=== PATIENT | female | born 1960 | race Caucasian/White ===

== ENCOUNTER 2017-09-23 15:10 | Observation (INO) | payer OTHER ==
[~2017-09-23] VITALS: Ht 165.1 cm; Wt 100.0 kg
[~2017-09-23 15:10] MED LIST: VENTAER INH
[2017-09-23] MEDS ORDERED: XARE20TA PO (15:16)
[2017-09-23 15:18] VITALS: BP 175/102; PULSE 90; RESP 18; TEMP 98.1; O2SAT 94
[2017-09-23] MEDS ORDERED: HYDR-3516 PO (15:40)
--- NOTE | 2017-09-23 15:54 | PD ---
HPI Chief Complaint: Complaint Time Seen by Provider: 15:50 Travel History International Travel<30 days: No Contact w/Intl Traveler<30days: No Traveled to known affect area: No History of Present Illness HPI This 57-year-old female is complaining of left flank pain and hematuria. She has been seeing Dr. Varma and is being evaluated for hematuria. He is on Xarelto because of a blood clot. She had a cystoscopy on September 09 which was apparently normal. She says that yesterday Dr. Varma went into her kidney through the urethra and did a biopsy. She was told to resume her Xarelto today. Since taking Xarelto PFSH Past Medical History Hx Anticoagulant Therapy: Yes Cancer: No Cardiovascular Problems: No Diabetes: No Diminished Hearing: No Deep Vein Thrombosis: Yes (RT KNEE) Endocrine: No Genitourinary: Yes Hepatitis: No Hiatal Hernia: No Immune Disorder: No Musculoskeletal: No Neurologic: No Psychiatric: No Reproductive: Yes (PELVIC PAIN) Respiratory: Yes (ASTHMA) Immunizations Current: Yes Thyroid Disease: No Tetanus Vaccination: Unknown Influenza Vaccination: No ?: Not LMP: 2013 Past Surgical History Body Medical Devices: NONE Genitourinary Surgery: Yes Hysterectomy: Yes Social History Alcohol Use: No Tobacco Use: No Substance Use: No Allergies-Medications (Allergen,Severity, Reaction): Coded Allergies: penicillin G (Unverified Allergy, Severe, Rash/HIVES, 09/23/17) A CHILD - HIVES - MILD REACTION Reported Meds & Prescriptions Reported Meds & Active Scripts Active Reported Hydrocodone-Acetaminophen 5-325 mg Tab 2 Tab PO Q4H PRN Xarelto (Rivaroxaban) 20 Mg Tab 20 Mg PO DAILY Review of Systems General / Constitutional: No: Fever, Chills Eyes: No: Diploplia, Blurred Vision HENT: No: Headaches, Vertigo Cardiovascular: No: Chest Pain or Discomfort, Palpitations Respiratory: No: Cough Gastrointestinal: No: Nausea, Vomiting Genitourinary: Positive: Hematuria, Flank Pain Skin: No Rash, No Itching Neurologic: No: Weakness, Dizziness Physical Exam Narrative GENERAL: Well-developed female SKIN: Focused skin assessment warm/dry. HEAD: Atraumatic. Normocephalic. EYES: Pupils equal and round. No scleral icterus. No injection or drainage. ENT: No nasal bleeding or discharge. Mucous membranes pink and moist. NECK: Trachea midline. No JVD. CARDIOVASCULAR: Regular rate and rhythm. No murmur appreciated. RESPIRATORY: No accessory muscle use. Clear to auscultation. Breath sounds equal bilaterally. GASTROINTESTINAL: Abdomen soft, non-tender, nondistended. Hepatic and splenic margins not palpable. There is right CVA tenderness MUSCULOSKELETAL: No obvious deformities. No clubbing. No cyanosis. No edema. NEUROLOGICAL: Awake and alert. No obvious cranial nerve deficits. Motor grossly within normal limits. Normal speech. PSYCHIATRIC: Appropriate mood and affect; insight and judgment normal. Data Data Last Documented VS Vital Signs Date Time Temp Pulse Resp B/P (MAP) Pulse Ox O2 Delivery O2 Flow Rate FiO2 09/23/17 15:18 98.1 90 18 175/102 (126) 94 Orders Orders Complete Blood Count With Diff (09/23/17 15:50) Basic Metabolic Panel (Bmp) (09/23/17 15:50) Prothrombin Time / Inr (Pt) (09/23/17 15:50) Act Partial Throm Time (Ptt) (09/23/17 15:50) Urinalysis - C+S If Indicated (09/23/17 15:50) Sodium Chlor 0.9% 1000 Ml Inj (Ns 1000 M (09/23/17 16:00) Ondansetron Inj (Zofran Inj) (09/23/17 16:00) Hydromorphone Pf Inj (Dilaudid Pf Inj) (09/23/17 16:00) MDM Medical Decision Making Medical Screen Exam Complete: Yes Emergency Medical Condition: Yes Medical Record Reviewed: Yes Differential Diagnosis Differential includes postoperative bleeding, coagulopathy Narrative Course Lab work is pending Kade Mirza MD Sep 23, 2017 15:54
[2017-09-23] MEDS ORDERED: HYDROmorphone HCL PF 2 MG/ML VIAL IV PUSH ONE (16:00)
[2017-09-23] MEDS ORDERED: ONDANSETRON HCL 4 MG/2 ML VIAL IV PUSH ONE (16:00)
[2017-09-23] MEDS: SODIUM CHLOR 0.9% 1000 ML INJ 1,000 ML IV SCH (16:02)
--- NOTE | 2017-09-23 16:07 | PD ---
Physical Exam Narrative Received sign out from previous team to follow up labs and reevaluate. 57yo F with PMH of right DVT on xarelto here with left flank pain today. Said she had "transurethral left kidney biopsy" yesterday by Dr. Gilberto Vogel for work up of hematuria. Labs reviewed, leukocytosis 12.2. BUN/creatinine elevated at 20/1.60 which is double baseline of 10/0.86 on 03/03/07. UA showed large blood. 20-24 WBC. Will cover with antibiotics. CTa/p showed mild swelling and edema of left kidney. Mild left hydronephrosis and hydroureter suggesting obstruction at the ureterovesical junction. Could be small clot or a radiolucent stone. No retroperitoneal hematoma. Pt is requiring multiple IV pain medications and still in pain. I discussed with Dr. Vogel who suggested admission for pain control and possibly a stent. However, he does not come to this hospital so he suggest consult urology international first officer. Said he did bilateral uteroscopy bilaterally yesterday and there was no kidney biopsy. Discussed with Dr. Manley who insist that I called urology first and see if they can admit. I discussed with urologist Dr. Lara who suggest pt be transferred to [facility] because she will need a stent. He states that usually the hospitalist admits the patient and manages the patient's other medical problems and urology will consult. I discussed with Dr. Louie and Dr. Castrejon will be the accepting physician. Data Data Last Documented VS Vital Signs Date Time Temp Pulse Resp B/P (MAP) Pulse Ox O2 Delivery O2 Flow Rate FiO2 09/23/17 21:00 75 18 151/87 (108) 96 Room Air 09/23/17 15:18 98.1 Orders Orders Complete Blood Count With Diff (09/23/17 15:50) Basic Metabolic Panel (Bmp) (09/23/17 15:50) Prothrombin Time / Inr (Pt) (09/23/17 15:50) Act Partial Throm Time (Ptt) (09/23/17 15:50) Urinalysis - C+S If Indicated (09/23/17 15:50) Sodium Chlor 0.9% 1000 Ml Inj (Ns 1000 M (09/23/17 16:00) Ondansetron Inj (Zofran Inj) (09/23/17 16:00) Hydromorphone Pf Inj (Dilaudid Pf Inj) (09/23/17 16:00) Urine Culture (09/23/17 15:30) Morphine Inj (Morphine Inj) (09/23/17 17:30) Ct Abd/Pel W/O Iv Contrast (09/23/17 ) Ciprofloxacin 400 Mg Premix (Cipro 400 M (09/23/17 19:00) Morphine Inj (Morphine Inj) (09/23/17 19:00) Docusate Sodium (Colace) (09/23/17 19:15) Consult Urology (09/23/17 ) (Hub Use Only)Inp Phy Cons/Ref (09/23/17 ) Admit Order (Ed Use Only) (09/23/17 21:01) Place In Observation (09/23/17 ) Vital Signs (Adult) PRECIOUS.Q4H (09/23/17 21:07) Diet Npo Except Meds (09/24/17 Breakfast) Activity Bed Rest (09/23/17 21:07) Hydromorphone Pf Inj (Dilaudid Pf Inj) (09/23/17 21:15) Ondansetron Inj (Zofran Inj) (09/23/17 21:15) Lorazepam (Ativan) (09/23/17 21:15) Oxybutynin (Ditropan) (09/23/17 21:15) Sodium Chlor 0.9% 1000 Ml Inj (Ns 1000 M (09/23/17 21:15) Intake + Output 06,14,22 (09/23/17 21:07) Comprehensive Metabolic Panel (09/24/17 06:00) Labs Laboratory Tests Test 09/23/17 15:30 White Blood Count 12.2 TH/MM3 Red Blood Count 4.53 MIL/MM3 Hemoglobin 13.7 GM/DL Hematocrit 42.0 % Mean Corpuscular Volume 92.8 FL Mean Corpuscular Hemoglobin 30.3 PG Mean Corpuscular Hemoglobin Concent 32.7 % Red Cell Distribution Width 12.6 % Platelet Count 184 TH/MM3 Mean Platelet Volume 10.0 FL Neutrophils (%) (Auto) 84.6 % Lymphocytes (%) (Auto) 7.5 % Monocytes (%) (Auto) 6.0 % Eosinophils (%) (Auto) 0.2 % Basophils (%) (Auto) 1.7 % Neutrophils # (Auto) 10.4 TH/MM3 Lymphocytes # (Auto) 0.9 TH/MM3 Monocytes # (Auto) 0.7 TH/MM3 Eosinophils # (Auto) 0.0 TH/MM3 Basophils # (Auto) 0.2 TH/MM3 CBC Comment DIFF FINAL Differential Comment Prothrombin Time 10.3 SEC Prothromb Time International Ratio 1.0 RATIO Activated Partial Thromboplast Time 26.1 SEC Urine Color RED Urine Turbidity CLOUDY Urine pH 7.0 Urine Specific [place] 1.017 Urine Protein 100 mg/dL Urine Glucose (UA) NEG mg/dL Urine Ketones NEG mg/dL Urine Occult Blood LARGE Urine Nitrite NEG Urine Bilirubin NEG Urine Leukocyte Esterase NEG Urine RBC INNUM /hpf Urine WBC 20-24 /hpf Microscopic Urinalysis Comment CULTURE INDICATED Blood Urea Nitrogen 20 MG/DL Creatinine 1.60 MG/DL Random Glucose 106 MG/DL Calcium Level 8.7 MG/DL Sodium Level 139 MEQ/L Potassium Level 4.0 MEQ/L Chloride Level 106 MEQ/L Carbon Dioxide Level 25.9 MEQ/L Anion Gap 7 MEQ/L Estimat Glomerular Filtration Rate 33 ML/MIN MDM Supervised Visit with CHRISTOS: No Diagnosis Primary Impression: Hydronephrosis Qualified Codes: N13.30 - Unspecified hydronephrosis Additional Impression: SARABJIT (acute kidney injury) Admitting Information Admitting Physician Requests: Katya Castro DO Sep 23, 2017 16:07
[2017-09-23 16:12] LABS: AUTOMATED NEUTROPHIL # 10.4 TH/MM3 (1.8-7.7); BASOPHIL # 0.2 TH/MM3 (0-0.2); BASOPHIL % 1.7 % (0.0-2.0); EOSINOPHIL % 0.2 % (0.0-4.0); HEMOGLOBIN 13.7 GM/DL (11.6-15.3); LYMPH % 7.5 % (9.0-44.0); LYMPHOCYTE # 0.9 TH/MM3 (1.0-4.8); MEAN CELL VOLUME 92.8 FL (80.0-100.0); MEAN CORPUSCULAR HEMOGLOBIN 30.3 PG (27.0-34.0); MEAN CORPUSCULAR HGB CONC 32.7 % (32.0-36.0); MONOCYTE # 0.7 TH/MM3 (0-0.9); NEUT % 84.6 % (16.0-70.0); PLATELET COUNT 184 TH/MM3 (150-450); RED BLOOD COUNT 4.53 MIL/MM3 (4.00-5.30); RED CELL DISTRIBUTION WIDTH 12.6 % (11.6-17.2); WHITE BLOOD COUNT 12.2 TH/MM3 (4.0-11.0)
[2017-09-23 16:22] LABS: BICARBONATE 25.9 MEQ/L (21.0-32.0); CALCIUM 8.7 MG/DL (8.5-10.1)
[2017-09-23 16:25] LABS: PROTHROMBIN TIME - PATIENT 10.3 SEC (9.8-11.6)
[2017-09-23 16:26] LABS: CREATININE 1.6 MG/DL (0.50-1.00)
[2017-09-23 16:28] LABS: BILIRUBIN, URINE NEG (NEG); BLOOD, URINE LARGE (NEG); GLUCOSE,URINE NEG (NEG); KETONE, URINE NEG (NEG); NITRITE,URINE NEG (NEG); URINE LEUKOCYTE ESTERASE NEG (NEG)
[2017-09-23 16:32] VITALS: BP 168/73; PULSE 76; RESP 18; O2SAT 97
[2017-09-23 16:47] LABS: URINE COLOR RED (YELLW/STRAW)
[2017-09-23 16:48] LABS: RBC, URINE INNUM /hpf (0-3)
[2017-09-23] MEDS ORDERED: MORPHINE SULFATE 2 MG/ML INJ IV PUSH ONE ×2 (17:30→19:00)
[2017-09-23 18:27] VITALS: BP 167/80; PULSE 78; RESP 20; O2SAT 95
--- NOTE | 2017-09-23 18:38 | RADRPT ---
EXAM DATE/TIME: 09/23/2017 18:01 [place] COMPARISON: No previous studies available for comparison. INDICATIONS : Left flank pain. Gross hematuria. Post left renal biopsy yesterday. ORAL CONTRAST: No oral contrast ingested. RADIATION DOSE: 22.05 CTDIvol (mGy) MEDICAL HISTORY : None SURGICAL HISTORY : Hysterectomy. ENCOUNTER: Initial ACUITY: 1 day PAIN SCALE: 10/10 LOCATION: Left flank TECHNIQUE: Volumetric scanning of the abdomen and pelvis was performed. Using automated exposure control and ad justment of the mA and/or kV according to patient size, radiation dose was kept as low as reasonably achievable to obtain optimal diagnostic quality images. DICOM format image data is available electro nically for review and comparison. FINDINGS: Left kidney is mildly swollen and edematous relative to the right kidney. There is mild hydronephrosi s and diffuse hydroureter. No measurable hematoma. A small amount of blood or a radiolucent stone cou ld be occluding the distal left ureter. 14 mm hypodensity mid zone of the right kidney. No acute right renal abnormality demonstrated. Noncontrast appearance of the liver, spleen, pancreas and adrenal glands within normal limits. No obs truction or acute inflammatory changes of the gastrointestinal tract. The appendix is normal. There i s no free fluid. No retroperitoneal hemorrhage. CONCLUSION: 1. Mild swelling and edema of the left kidney. There is also mild left hydronephrosis and hydroureter suggesting obstruction at the ureterovesical junction. The differential would be small clot or a rad iolucent stone. No nephric, perinephric or retroperitoneal hematoma demonstrated. 2. 14 mm indeterminate hypodensity of the right kidney, most likely a cyst. Gerhard Jane MD on September 23, 2017 at 18:32 Board Certified Radiologist. This report was verified electronically.
[2017-09-23 19:00] VITALS: BP 169/86; PULSE 79; RESP 18; O2SAT 93
[2017-09-23] MEDS ORDERED: CIPROFLOXACIN 400 MG PREMIX 200 ML IV ONE (19:00)
[2017-09-23] MEDS ORDERED: DOCUSATE SODIUM 100 MG CAP PO ONE (19:15)
[2017-09-23 21:00] VITALS: BP 151/87; PULSE 75; RESP 18; O2SAT 96
[2017-09-23] MEDS ORDERED: OXYBUTYNIN CHLORIDE 5 MG TAB PO ONE (21:15)
[2017-09-23] MEDS ORDERED: SODIUM CHLOR 0.9% 1000 ML INJ 1,000 ML IV SCH (21:15)
[2017-09-23] MEDS ORDERED: LORazepam 0.5 MG TAB PO ONE (21:15)
[2017-09-23] MEDS ORDERED: HYDROmorphone HCL PF 2 MG/ML VIAL IV PUSH PRN (21:15)
[2017-09-23] MEDS ORDERED: ONDANSETRON HCL 4 MG/2 ML VIAL IV PUSH PRN (21:15)
[2017-09-23 23:00] VITALS: BP 137/68; PULSE 73; RESP 16; O2SAT 95
[2017-09-24 00:24] VITALS: BP 125/60; PULSE 73; RESP 16; O2SAT 92
[2017-09-24 01:21] VITALS: BP 123/59
[2017-09-24 01:57] VITALS: BP 111/64; PULSE 68; RESP 19; TEMP 97.8; O2SAT 95
[2017-09-24 05:54] VITALS: BP 101/52; PULSE 60; RESP 18; TEMP 98.2; O2SAT 96
[2017-09-24] MEDS: SODIUM CHLOR 0.9% 1000 ML INJ 1,000 ML IV SCH ×2 (08:00)
[2017-09-24 09:01] VITALS: BP 117/71; PULSE 64; RESP 18; TEMP 96.7; O2SAT 94
--- NOTE | 2017-09-24 09:41 | HHI.HP ---
HPI Service [facility] Hospitalists Primary Care Physician John Nowak MD Admission Diagnosis Left hydroureter, SARABJIT, intractable pain Chief Complaint: Left flank pain Travel History International Travel<30 Days: No Contact w/Intl Traveler <30 Da: No Traveled to Known Affected Are: No History of Present Illness Mrs. Holguin is a pleasant 57 y/o WF with previous right ankle surgery performed at [facility] in 02/2017 and a right LE DVT and was started on Xarelto in 06/2017. She has had a long standing hx of intermittent hematuria and has been following more recently with Dr. Rivera. Pt had undergone a cystoscopy in 08/2017 without any significant findings. Two days ago she underwent bilateral ureteroscopy with Dr. Rivera and started having some increased hematuria following the procedure. Then yesterday she had severe left flank pain which was reportedly like "severe spasms" and continued hematuria with clots present. Pt contacted Dr. Rivera's office and [place] [facility] [place] Labs in the ED noted WBC count 12.2, BUN 20/creatinine 1.60 (outpt labs from 08/13/17 noted Cr 0.72/BUN 26). UA showed large blood/innumerable RBC , 20-[address] Abd/pelvis showed mild swelling and edema of left kidney, mild left hydronephrosis and hydroureter suggesting obstruction at the ureterovesical junction, could be small clot or a radiolucent stone. No retroperitoneal hematoma. Pt had significant pain int he ED requiring multiple IV pain medications. She did finally get relief with a combination of Ditropan, Ativan, and IV Dilaudid. Her pain has resolved currently. Pt was transferred to [facility] for Urology consultation and evaluation. Today pt reports that she is still having significant hematuria. She had taken her Xarelto yesterday but prior to that had been off the Xarelto for 4 days prior to her ureteroscopy. I spoke with Dr. Lara this morning and he and Dr. Rivera would like to see the pt today in the office for cystoscopy and possible stent placement. Pts vital signs are stable. Her repeat labs are pending currently. Her pain is controlled. She denies any nausea/vomiting, fevers/chills, chest pain or SOB. Review of Systems Constitutional: DENIES: Fever, Chills Respiratory: DENIES: Shortness of breath Cardiovascular: DENIES: Chest pain, Palpitations, Lower Extremity Edema Gastrointestinal: COMPLAINS OF: Abdominal pain, DENIES: Diarrhea, Nausea, Vomiting Genitourinary: COMPLAINS OF: Hematuria, DENIES: Urgency Musculoskeletal: DENIES: Back pain, Neck pain Integumentary: DENIES: Rash Neurologic: DENIES: Headache Psychiatric: DENIES: Confusion Past Family Social History Past Medical History RLE DVT (06/2017) on Xarelto Asthma Hx of traumatic arthritis of the right ankle Past Surgical History Double arthrodesis of the right hindfoot on 02/16/2017 Hysterectomy in 2013 Cystoscopy and ureteroscopy Reported Medications Hydrocodone-Acetaminophen 5-325 mg 2 Tab PO Q4H PRN Xarelto 20 Mg PO DAILY Allergies: Coded Allergies: penicillin G (Unverified Allergy, Severe, Rash/HIVES, 09/23/17) A CHILD - HIVES - MILD REACTION Family History Noncontributory Social History Denies any tobacco, regular alcohol use or illicit drug use Pt drinks 4+ caffeinated beverages per day She is Physical Exam Vital Signs Vital Signs Date Time Temp Pulse Resp B/P (MAP) Pulse Ox O2 Delivery O2 Flow Rate FiO2 09/24/17 05:54 98.2 60 18 101/52 (68) 96 09/24/17 01:57 97.8 68 19 111/64 (80) 95 09/24/17 01:21 76 16 123/59 (80) 92 09/24/17 00:24 73 16 125/60 (81) 92 Room Air 09/23/17 23:33 16 09/23/17 23:00 73 16 137/68 (91) 95 Room Air 09/23/17 21:00 75 18 151/87 (108) 96 Room Air 09/23/17 19:51 18 09/23/17 19:00 79 18 169/86 (113) 93 Room Air 09/23/17 19:00 18 09/23/17 18:27 78 20 167/80 (109) 95 Room Air 09/23/17 16:32 76 18 168/73 (104) 97 Room Air 09/23/17 15:18 98.1 90 18 175/102 (126) 94 Physical Exam GENERAL: This is a well-nourished, well-developed patient, in no apparent distress. HEENT: Atraumatic. Normocephalic. No temporal or scalp tenderness. No scleral icterus. Airway patent. NECK: Trachea midline, supple, nontender. CARDIO: Regular. RESP: CTA bilaterally. No wheezes, rales, or rhonchi. ABD: +BS, soft, non-tender, nondistended. EXT: Extremities without clubbing, cyanosis, or edema. NEURO: Awake and alert. Motor and sensory grossly within normal limits. Normal speech. Laboratory Laboratory Tests Test 09/23/17 15:30 White Blood Count 12.2 Red Blood Count 4.53 Hemoglobin 13.7 Hematocrit 42.0 Mean Corpuscular Volume 92.8 Mean Corpuscular Hemoglobin 30.3 Mean Corpuscular Hemoglobin Concent 32.7 Red Cell Distribution Width 12.6 Platelet Count 184 Mean Platelet Volume 10.0 Neutrophils (%) (Auto) 84.6 Lymphocytes (%) (Auto) 7.5 Monocytes (%) (Auto) 6.0 Eosinophils (%) (Auto) 0.2 Basophils (%) (Auto) 1.7 Neutrophils # (Auto) 10.4 Lymphocytes # (Auto) 0.9 Monocytes # (Auto) 0.7 Eosinophils # (Auto) 0.0 Basophils # (Auto) 0.2 CBC Comment DIFF FINAL Differential Comment Prothrombin Time 10.3 Prothromb Time International Ratio 1.0 Activated Partial Thromboplast Time 26.1 Urine Color RED Urine Turbidity CLOUDY Urine pH 7.0 Urine Specific [place] 1.017 Urine Protein 100 Urine Glucose (UA) NEG Urine Ketones NEG Urine Occult Blood LARGE Urine Nitrite NEG Urine Bilirubin NEG Urine Leukocyte Esterase NEG Urine RBC INNUM Urine WBC 20-24 Microscopic Urinalysis Comment CULTURE INDICATED Blood Urea Nitrogen 20 Creatinine 1.60 Random Glucose 106 Calcium Level 8.7 Sodium Level 139 Potassium Level 4.0 Chloride Level 106 Carbon Dioxide Level 25.9 Anion Gap 7 Estimat Glomerular Filtration Rate 33 Date/Time Source Procedure Growth Status 09/23/17 15:30 Urine Clean Catch Urine Culture Pending Received Result Diagram: 09/23/17 1530 09/23/17 1530 Imaging Last Impressions Abdomen/Pelvis CT 09/23/17 0000 Signed Impressions: Service Date/Time: September 18:01 - CONCLUSION: 1. Mild swelling and edema of the left kidney. There is also mild left hydronephrosis and hydroureter suggesting obstruction at the ureterovesical junction. The differential would be small clot or a radiolucent stone. No nephric, perinephric or retroperitoneal hematoma demonstrated. 2. 14 mm indeterminate hypodensity of the right kidney, most likely a cyst. MD Alex Orozco VTE Risk Assessment Caprini VTE Risk Assessment: Mod/High Risk (score >= 2) Caprini Risk Assessment Model Point Value = 1 Point Value = 2 Point Value = 3 Point Value = 5 Age 41-60 Minor surgery BMI > 25 kg/m2 Swollen legs Varicose veins or History of unexplained or recurrent spontaneous Oral contraceptives or hormone replacement Sepsis (< 1 month) Serious lung disease, including pneumonia (< 1 month) Abnormal pulmonary function Acute myocardial infarction Congestive heart failure (< 1 month) History of inflammatory bowel disease Medical patient at bed rest Age 61-74 Arthroscopic surgery Major open surgery (> 45 min) Laparoscopic surgery (> 45 min) Malignancy Confined to bed (> 72 hours) Immobilizing plaster cast Central venous access Age >= 75 History of VTE Family history of VTE Factor V Leiden Prothrombin [id number] Lupus anticoagulant Anticardiolipin antibodies Elevated serum homocysteine Heparin-induced thrombocytopenia Other congenital or acquired thrombophilia Stroke (< 1 month) Elective arthroplasty Hip, pelvis, or leg fracture Acute spinal cord injury (< 1 month) Prophylaxis Regimen Total Risk Factor Score Risk Level Prophylaxis Regimen 0-1 Low Early ambulation 2 Moderate Order ONE of the following: *Sequential Compression Device (SCD) *Heparin 5000 units SQ BID 3-4 Higher Order ONE of the following medications: *Heparin 5000 units SQ TID *Enoxaparin/Lovenox 40 mg SQ daily (WT < 150 kg, CrCl > 30 mL/min) *Enoxaparin/Lovenox 30 mg SQ daily (WT < 150 kg, CrCl > 10-29 mL/min) *Enoxaparin/Lovenox 30 mg SQ BID (WT < 150 kg, CrCl > 30 mL/min) AND/OR *Sequential Compression Device (SCD) 5 or more Highest Order ONE of the following medications: *Heparin 5000 units SQ TID (Preferred with Epidurals) *Enoxaparin/Lovenox 40 mg SQ daily (WT < 150 kg, CrCl > 30 mL/min) *Enoxaparin/Lovenox 30 mg SQ daily (WT < 150 kg, CrCl > 10-29 mL/min) *Enoxaparin/Lovenox 30 mg SQ BID (WT < 150 kg, CrCl > 30 mL/min) AND *Sequential Compression Device (SCD) Assessment and Plan Problem List: (1) Hydronephrosis ICD Codes: N13.30 - Unspecified hydronephrosis Status: Acute Plan: Left hydronephrosis Gross hematuria Left flank pain - Pt is a pleasant 57 y/o WF with previous right ankle surgery performed at [facility] in 06/2017 and subsequently developed a right LE DVT and was started on Xarelto in 06/2017. She has had a long standing hx of intermittent hematuria and has been following more recently with Dr. Rivera. - Pt had undergone a cystoscopy in 08/2017 without any significant findings. - Two days ago she underwent bilateral ureteroscopy with Dr. Rivera and started having some increased hematuria following the procedure. Then yesterday she had severe left flank pain which was reportedly like "severe spasms" and continued hematuria with clots present. Pt contacted Dr. Rivera's office and [place] [facility] [place] - Labs in the ED noted WBC count 12.2, BUN 20/creatinine 1.60 (outpt labs from 08/13/17 noted Cr 0.72/BUN 26). - UA showed large blood/innumerable RBC, 20-24 WBC. - CT Abd/pelvis showed mild swelling and edema of left kidney, mild left hydronephrosis and hydroureter suggesting obstruction at the ureterovesical junction, could be small clot or a radiolucent stone. No retroperitoneal hematoma. - Pt had significant pain int he ED requiring multiple IV pain medications. She did finally get relief with a combination of Ditropan, Ativan, and IV Dilaudid. Her pain has resolved currently. - Pt was transferred to [facility] for Urology consultation and evaluation. Today pt reports that she is still having significant hematuria. She had taken her Xarelto yesterday but prior to that had been off the Xarelto for 4 days prior to her ureteroscopy. - I spoke with Dr. Lara this morning and he reports that Dr. Rivera would like to see the pt today in the office for cystoscopy and possible stent placement. Pts vital signs are stable. Her repeat labs are pending currently. Her pain is controlled. - If her repeat labs are stable we will discharge this morning to see Dr. Rivera across the street at [facility] for further evaluation. - Pt has [place] prescribed as well as an antibiotics and stool softeners from Dr. Vidal office. RLE DVT - Pt has been on Xarelto since 06/2017 - This was held prior to her procedure on 09/22/17 for 4 days and she took one dose yesterday. - This will be resumed per Dr. Vidal recommendations post-procedure (2) Hematuria ICD Codes: R31.9 - Hematuria, unspecified (3) Deep vein thrombosis (DVT) of right lower extremity ICD Codes: I82.401 - Acute embolism and thrombosis of unspecified deep veins of right lower extremity Assessment and Plan Patient examined. Assessment and plan formulated with Vinita Ramirez PA-C. I agree with the above. Urology wants pt to be discharged and come to surgical center today for cysto. hgb stable and cr back to nml. no pain currently. Problem Qualifiers (1) Hydronephrosis: Qualified Codes: N13.30 - Unspecified hydronephrosis (2) Hematuria: Qualified Codes: R31.9 - Hematuria, unspecified Vinita Ramirez Sep 24, 2017 09:41 Braden Yen MD Sep 24, 2017 10:55
[2017-09-24 09:42] LABS: AUTOMATED NEUTROPHIL # 6.6 TH/MM3 (1.8-7.7); BASOPHIL # 0.1 TH/MM3 (0-0.2); BASOPHIL % 0.6 % (0.0-2.0); EOSINOPHIL # 0.1 TH/MM3 (0-0.4); EOSINOPHIL % 0.6 % (0.0-4.0); HEMATOCRIT 38.2 % (35.0-46.0); HEMOGLOBIN 13.1 GM/DL (11.6-15.3); LYMPH % 18.7 % (9.0-44.0); LYMPHOCYTE # 1.7 TH/MM3 (1.0-4.8); MEAN CELL VOLUME 94.7 FL (80.0-100.0); MEAN CORPUSCULAR HEMOGLOBIN 32.4 PG (27.0-34.0); MEAN CORPUSCULAR HGB CONC 34.2 % (32.0-36.0); MEAN PLATELET VOLUME 9.7 FL (7.0-11.0); MONOCYTE # 0.8 TH/MM3 (0-0.9); NEUT % 71.1 % (16.0-70.0); PLATELET COUNT 181 TH/MM3 (150-450); RED BLOOD COUNT 4.03 MIL/MM3 (4.00-5.30); RED CELL DISTRIBUTION WIDTH 12.9 % (11.6-17.2); WHITE BLOOD COUNT 9.3 TH/MM3 (4.0-11.0)
[2017-09-24 10:14] LABS: ALBUMIN 3.4 GM/DL (3.4-5.0); AST (GOT) 22 U/L (15-37); BICARBONATE 27.8 MEQ/L (21.0-32.0); BLOOD UREA NITROGEN 15 MG/DL (7-18); CALCIUM 8.6 MG/DL (8.5-10.1); CHLORIDE 106 MEQ/L (98-107); CREATININE 0.93 MG/DL (0.50-1.00); GLOMERULAR FILTRATION RATE 63 ML/MIN (>89); GLUCOSE,RANDOM 87 MG/DL (74-106); SODIUM (NA) 142 MEQ/L (136-145)
[2017-09-24 10:15] LABS: ALT (GPT) 41 U/L (10-53)
[2017-09-24 10:20] LABS: ALKALINE PHOSPHATASE 74 U/L (45-117); TOTAL BILIRUBIN ADULT 0.8 MG/DL (0.2-1.0); TOTAL PROTEIN 6.8 GM/DL (6.4-8.2)
== END 2017-09-24 11:15 | disposition home or self-care (01) ==
LOC: PHED 15:10 → PHEDA 21:03 → UNDOADMIN 21:03 → INTOOBSV 21:03 → OBSVTOIN 21:03 → INTOOBSV 21:13 → PHEDA 21:13 → NEPHCDU 09-24 01:50
PROVIDERS: ADMIT Hospitalist; ATTEND Hospitalist
DX: N13.30 Unspecified hydronephrosis (principal); N17.9 Acute kidney failure, unspecified; I82.401 Acute embolism and thrombosis of unspecified deep veins of right lower extremity; D72.829 Elevated white blood cell count, unspecified; J45.909 Unspecified asthma, uncomplicated; Z79.01 Long term (current) use of anticoagulants; Z90.710 Acquired absence of both cervix and uterus
CPT/HCPCS: 74176; 80048; 80053; 81001; 85025; 85610; 85730; 87086; 96361; 96365; 96374; 96375; 96376; 99285; G0378; J0744; J1170; J2270; J2405; J7030